=== PATIENT | female | born 1965 | race Caucasian/White ===

== ENCOUNTER 2018-02-14 05:36 | Day surgery (SDC) | payer OTHER ==
[2018-02-12 14:36] VITALS: BMI 31.0
[2018-02-14] MEDS ORDERED: ACETAMINOPHEN 325 MG TABLET (FP) PO PRN (10:03)
[2018-02-14] MEDS ORDERED: IBUPROFEN 800 MG/8 ML IJ IVPB PRN (10:03)
--- NOTE | 2018-02-14 10:05 | HP ---
History & Physical Update - History History: No Change - Physical Physical: No Change - Assessment Assessment: No Change - Plan Plan: No Change (Agree with H&P from 02/12, for laparoscopic ovarian cystectomy and hysteroscopy D&C)
[2018-02-14] MEDS ORDERED: LACTATED RINGERS SOLUTION 1,000 ML IV SCH ×2 (10:15→11:15)
[2018-02-14] MEDS ORDERED: MIDAZOLAM HCL 2 MG/2 ML SINGLE DOSE VIAL ONE ×2 (10:21)
[2018-02-14] MEDS ORDERED: ROCURONIUM BROMIDE 50 MG/5 ML VIAL ONE (10:27)
[2018-02-14] MEDS ORDERED: ESMOLOL HCL 100,000 MCG/10 ML VIAL ONE (10:28)
[2018-02-14] MEDS ORDERED: KETAMINE HCL 200 MG/20 ML VIAL ONE (10:29)
[2018-02-14] MEDS ORDERED: DEXAMETHASONE SOD PHOSPHATE 4 MG/1 ML VIAL ONE (10:49)
[2018-02-14] MEDS ORDERED: ONDANSETRON 4 MG/2 ML VIAL IVPUSH PRN (11:08)
[2018-02-14] MEDS ORDERED: oxyCODONE HCL 5 MG TABLET PO PRN ×2 (11:08)
[2018-02-14] MEDS ORDERED: BUPIVACAINE HCL/PF 0.5% (5MG/ML) 10 ML VIAL IJ ONE (11:21)
[2018-02-14] MEDS ORDERED: GLYCOPYRROLATE 0.2 MG/1 ML VIAL ONE (12:20)
[2018-02-14] MEDS ORDERED: KETOROLAC TROMETHAMINE 30 MG/1 ML VIAL ONE (12:20)
[2018-02-14] MEDS ORDERED: NEOSTIGMINE METHYLSULFATE 0.5 MG/ML - 10 ML MDV ONE (12:20)
[2018-02-14] MEDS ORDERED: PROPOFOL 20 ML ONE (12:27)
[2018-02-14] MEDS ORDERED: ACETAMINOPHEN INJECTION 100 ML IVPB ONE (13:22)
[2018-02-14] MEDS ORDERED: ACETAMINOPHEN 1000 MG/100 ML VIAL (NON FORMULARY) IVPB ONE (13:30)
--- NOTE | 2018-02-14 15:11 | SURG ---
Surgery Carbon Electro[employer] Supervisor Note [employer] Supervisor: Ermias Syed PA-C Date of Service: 02/14/18 Diagnosis: Right ovarian cyst, abnormal uterine bleeding Procedure: Laproscopic right ovarian cystectomy, hysteroscopy, suction dilation and curretage I was present for the entirety of the operative procedure. For further detail, please refer to operative report. Visit type - Case Type Case Type: Scheduled - Emergency Emergency Visit: No - New patient This patient is new to me today: Yes Date on this admission: 02/14/18
--- NOTE | 2018-02-14 15:11 | OP ---
Operative Note - Note: Operative Date: 02/14/18 Pre-Operative Diagnosis: Right ovarian cyst, abnormal uterine bleeding Operation: Laproscopic right ovarian cystectomy, hysteroscopy, suction dilation and curretage Surgeon: Mary Ochoa Glass Checker: Ermias Syed Anesthesiologist/PIPELINES LABORER: Anatoliy Rome Anesthesia: General Estimated Blood Loss (mls): 20 Fluid Volume Replaced (mls): 1,000 Operative Report Dictated: Yes
[2018-02-14 17:49] VITALS: TEMP 97.3
[2018-02-14 17:57] VITALS: BP 152/90; PULSE 88
--- NOTE | 2018-02-15 09:10 | OP ---
DATE OF OPERATION: 02/14/2018 PREOPERATIVE DIAGNOSIS: Abnormal uterine bleeding, right ovarian cyst, and pelvic pain. POSTOPERATIVE DIAGNOSIS: Abnormal uterine bleeding, right ovarian cyst, and pelvic pain. PROCEDURE: Laparoscopic right ovarian cystectomy and drainage of endometrioma, hysteroscopy, suction dilation and curettage. SURGEON: Mary Ochoa DO BUSINESS SERVICES REPRESENTATIVE: Ermias Syed PA-C ANESTHESIA: General by JB Wilcox ESTIMATED BLOOD LOSS: 20 mL COMPLICATIONS: None. COUNTS: Sponge, needle, and instrument counts correct. SPECIMENS REMOVED: Endometrial curettings and right ovarian cyst. DISPOSITION: Stable to the PACU. BRIEF HISTORY AND PROCEDURE: Patient is a 52-year-old female who was seen in the office with complaints of abnormal uterine bleeding as well as pelvic pain. Upon ultrasound examination was noted to have an endometrial polyp and an approximately 4-5 cm right ovarian cyst, which appeared to be hemorrhagic in nature. Patient was counseled on the options and elected to undergo laparoscopic removal of the ovarian cyst as well as the suction dilation and curettage and hysteroscopy. The consent for the procedure was signed in the office. On February 14, 2018, the patient was admitted to [facility] and consents were reconfirmed. The patient was taken back to the operating room and given general anesthesia and placed in the dorsal lithotomy position. The Stoll catheter was placed under sterile conditions. She was prepped and draped in the usual sterile fashion and a hard timeout was performed. A 5-mm skin incision was created in the umbilicus and the Veress needle was inserted into the abdomen. The abdomen was insufflated with CO2 gas. A 5-mm trocar was placed and the camera was inserted. After confirmation of the intraabdominal placement, two 5-mm lower quadrant ports were placed in the left and right lower quadrants under direct visualization. A right ovarian cyst was noted, which was incised and the cyst wall was dissected away from the ovarian stroma bluntly. The cyst was ruptured and hemorrhagic fluid was noted to be draining, which was irrigated and suctioned copiously. The cyst was then removed from the 5-mm trocar under direct visualization without difficulty. Further examination of the pelvis revealed a peritoneal endometrioma or what appeared to be a cystic structure on the posterior wall of the uterus. This was incised and drained. Again, hemorrhagic fluid was noted to be draining. After copious suction and irrigation, placement of Surgicel inside the ovarian surgical bed, excellent hemostasis was achieved. All trocars were removed from the abdomen. The abdomen as desufflated and the skin was reapproximated using 4-0 Biosyn and skin glue. Attention was then turned down below where the speculum was placed inside the vagina and the cervix was visualized. The anterior lip was grasped with tenaculum. A diagnostic hysteroscope was advanced into the fundus and a small anterior uterine polyp was appreciated. Sharp curettage in all 4 torres of the uterus until adequate uterine was completed as well as suction curettage to remove the specimen. One final look with the hysteroscope revealed no evidence of uterine perforation and adequate removal of endometrial tissue. All instruments were removed from the vagina. Sponge and instrument counts were reported to be correct. The Stoll catheter was removed. She was awoken from anesthesia and recovered in stable condition in the PACU after the procedure. MARY OCHOA DO /[id number]
--- NOTE | 2018-02-16 15:33 | PATH ---
Surgical Pathology Report Patient Name: IESHA BENAVIDEZ [facility]. Rec. #: [id number] /Age/Gender: 1965 (Age: 52) / F Account: [id number] Location: [facility] Taken: 02/14/2018 Received: 02/14/2018 Reported: 02/16/2018 Physicians: Mary Ochoa M.D. Specimen(s) Received A: LEFT OVARIAN CYST B: UTERINE CONTENTS Clinical History Right ovarian cyst Final Diagnosis A. OVARIAN CYST, RIGHT, LAPAROSCOPIC OVARIAN CYSTECTOMY: CONSISTENT WITH ENDOMETRIOTIC CYST. B. UTERINE CONTENTS, DILATATION AND CURETTAGE: FRAGMENTS OF ENDOMETRIAL POLYP AND SCANT BENIGN CERVICAL TISSUE. Electronically Signed Yudelka Cole M.D. Gross Description A. Received in formalin labeled "right ovarian cyst," is a 4.5 x 3.0 x 1.0 cm disrupted cystic structure. The outer surface is montgomery-collazo and smooth. The inner lining is montgomery-brown and smooth. No excrescences are identified. The cyst wall measures 0.1 cm in thickness. No normal ovarian parenchyma is identified. Hand Loom Weaver sections are submitted in 4 cassettes. B. Received in formalin labeled "uterine contents," is a 4.5 x 3.0 x 0.4 cm aggregate of montgomery-brown soft tissue fragments. The formalin is filtered and the specimen is entirely submitted in 4 cassettes. 02/15/201802/15/2018
== END 2018-02-14 15:40 | disposition home or self-care (01) ==
LOC: JASU-SURG 05:36
PROVIDERS: ATTEND Obstetrics & Gynecology
PROC: 0UB04ZZ Excision of Right Ovary, Percutaneous Endoscopic Approach (ICD-10-PCS; principal; 2018-02-14 09:45)
PROC: 0UDB7ZX Extraction of Endometrium, Via Natural or Artificial Opening, Diagnostic (ICD-10-PCS; 2018-02-14 09:45)
PROC: 0UJD8ZZ Inspection of Uterus and Cervix, Via Natural or Artificial Opening Endoscopic (ICD-10-PCS; 2018-02-14 09:45)
DX: N93.9 Abnormal uterine and vaginal bleeding, unspecified (principal); N83.201 Unspecified ovarian cyst, right side; N80.0 Endometriosis of uterus
CPT/HCPCS: 86850; 86900; 86901; 88304-TC; 88305-TC; J0131